=== PATIENT | female | born 1945 | race Caucasian/White ===

== ENCOUNTER 2017-02-18 14:40 | Inpatient (IN) | payer OTHER ==
[~2017-02-18] VITALS: Ht 154.9 cm; Wt 97.3 kg
[~2017-02-18 14:40] MED LIST: ACIDOPHILUS LA1 EAC1 PO; ASPIR 8181 M1 PO; Cardizem CD,Cartia X PO; Cordarone, Pacerone PO; Coumadin,Jantoven PO; Keflex PO; Lanoxin,Digitek PO; Lasix PO; Nitrostat,NitroQuick SL; Zestril,Prinivil PO
[2017-02-18 15:40] LABS: HEMATOCRIT 39.9 % (36.0-46.0); MCH 27.6 PG (29.0-34.0); MCHC 30.1 G/DL (30.0-36.0); MCV 91.9 FL (83-99); MEAN PLAT.VOLUME 11.3 uM^3 (9.5-12.4); NRBC (%) 0.4 /100 WBC (0-0); PLATELET COUNT 178 K/uL (156-360); RBC DIS.WIDTH-CV 17.1 % (11.8-14.6); RBC DIS.WIDTH-SD 57.2 % (39-53); RED BLOOD COUNT 4.34 M/uL (3.80-5.20); WHITE BLOOD COUNT 11.2 K/uL (4.1-10.2)
[2017-02-18 15:42] LABS: INTER. NORMALIZED RATIO 2.2; PROTHROMBIN TIME 24.7 SEC (10.2-12.9)
[2017-02-18 15:45] LABS: CHLORIDE 100 mEq/L (99-109); POTASSIUM 3.4 mEq/L (3.7-5.4); SODIUM 136 mEq/L (136-147)
[2017-02-18 15:47] LABS: GLUCOSE 125 mg/dL (70-99)
[2017-02-18 15:49] LABS: ANION GAP 16 MEQ/L (2-14)
[2017-02-18 15:51] LABS: GFR ESTIMATE (CALCULATED) 34 mL/min/
[2017-02-18 15:52] LABS: UREA NITROGEN (BUN) 28 mg/dL (9-23)
[2017-02-18 16:00] LABS: TROP-I INTERPRETATION NEGATIVE; TROPONIN-I < 0.01 ng/mL (0.0-0.30)
[2017-02-18] MEDS ORDERED: COUMADIN2 MG PO (17:23)
[2017-02-18] MEDS ORDERED: LASIX40 MG PO (17:26)
[2017-02-18] MEDS ORDERED: ZESTRIL10 MG PO (17:27)
[2017-02-18] MEDS ORDERED: LOPRESSOR100 M1 PO (17:28)
[2017-02-18] MEDS ORDERED: TYLENOL EXTRA500 MG PO (17:31)
[2017-02-18 18:21] LABS: PTT 33.8 SEC (25-37)
[2017-02-18 19:10] LABS: TOTAL BILIRUBIN 1.6 mg/dL (0.0-1.0)
[2017-02-18 19:11] LABS: ALKALINE PHOSPHATASE 94 IU/L (3-129)
[2017-02-18 19:45] VITALS: BP 122/87
[2017-02-18 21:40] VITALS: BP 122/87
[2017-02-18 22:55] VITALS: BP 105/75
[2017-02-19] VITALS (12 sets, daily range): BP systolic 96–118; BP diastolic 63–78
[2017-02-19 03:56] LABS: MCHC 30.6 G/DL (30.0-36.0); MCV 91.6 FL (83-99); MEAN PLAT.VOLUME 11.5 uM^3 (9.5-12.4); NRBC (%) 0.5 /100 WBC (0-0); PLATELET COUNT 162 K/uL (156-360); RBC DIS.WIDTH-CV 17.1 % (11.8-14.6); RED BLOOD COUNT 3.82 M/uL (3.80-5.20); WHITE BLOOD COUNT 10.8 K/uL (4.1-10.2)
[2017-02-19 04:09] LABS: CHLORIDE 101 mEq/L (99-109)
[2017-02-19 04:10] LABS: POTASSIUM 3.2 mEq/L (3.7-5.4); SODIUM 133 mEq/L (136-147)
[2017-02-19 04:11] LABS: GLUCOSE 135 mg/dL (70-99)
[2017-02-19 04:13] LABS: ANION GAP 14 MEQ/L (2-14)
[2017-02-19 04:15] LABS: GFR ESTIMATE (CALCULATED) 43 mL/min/
[2017-02-19 04:16] LABS: UREA NITROGEN (BUN) 22 mg/dL (9-23)
[2017-02-19 07:08] LABS: ALKALINE PHOSPHATASE 84 IU/L (3-129)
[2017-02-19 07:09] LABS: TOTAL BILIRUBIN 1.1 mg/dL (0.0-1.0)
[2017-02-19 07:18] LABS: DIGOXIN 1.4 ng/mL (0.8-2.0)
[2017-02-19 20:01] LABS: INTER. NORMALIZED RATIO 2.1; PROTHROMBIN TIME 23.2 SEC (10.2-12.9)
[2017-02-19 20:12] LABS: PTT 42.5 SEC (25-37)
[2017-02-20] VITALS (15 sets, daily range): BP systolic 102–137; BP diastolic 67–92
[2017-02-20 05:09] LABS: EOSINOPHIL (%) 0.6 % (0-5); EOSINOPHIL COUNT 0.1 K/uL (0-0.3); HEMATOCRIT 34.2 % (36.0-46.0); IMMATURE GRANULOCYTE (%) 0.6 % (0.0-0.7); IMMATURE GRANULOCYTE COUNT 0.1 K/uL; INSTRUMENT ABS NEUTROPHIL CT 8.6 K/uL; LYMPHOCYTE COUNT 1.4 K/uL (1.0-2.8); MCH 27.9 PG (29.0-34.0); MCHC 29.8 G/DL (30.0-36.0); MCV 93.4 FL (83-99); MEAN PLAT.VOLUME 10.5 uM^3 (9.5-12.4); MONOCYTE (%) 10.5 % (3-12); MONOCYTE COUNT 1.2 K/uL (0-0.8); NEUTROPHIL (%) 75.6 % (45-76); NEUTROPHIL COUNT 8.6 K/uL (1.8-6.4); PLATELET COUNT 162 K/uL (156-360); RBC DIS.WIDTH-CV 16.9 % (11.8-14.6); RBC DIS.WIDTH-SD 57.4 % (39-53); RED BLOOD COUNT 3.66 M/uL (3.80-5.20); WHITE BLOOD COUNT 11.4 K/uL (4.1-10.2)
[2017-02-20 05:25] LABS: ALKALINE PHOSPHATASE 70 IU/L (3-129); ANION GAP 12 MEQ/L (2-14); CHLORIDE 101 MEQ/L (99-109); GFR ESTIMATE (CALCULATED) 47 mL/min/; GLUCOSE 117 mg/dL (70-99); SAMPLE HEMOLYSIS CHECK 0; SAMPLE ICTERIC CHECK 0; SAMPLE LIPEMIA CHECK 0; SODIUM 134 MEQ/L (136-147); TOTAL BILIRUBIN 1.4 MG/DL (0.0-1.0); UREA NITROGEN (BUN) 16 mg/dL (9-23)
[2017-02-20 05:28] LABS: POTASSIUM 3.9 MEQ/L (3.7-5.4)
[2017-02-20 14:08] LABS: ADD MIUA? YES; BILIRUBIN NEGATIVE; BLOOD SMALL; COLOR AMBER ((YELLOW)); GLUCOSE (STRIP) NEGATIVE; KETONES NEGATIVE; LEUKOCYTES SMALL; NITRITE NEGATIVE; PROTEIN (STRIP) 30; SPECIFIC GRAVITY 1.026 (1.000-1.030); UROBILINOGEN 0.2 MG/DL (0.2-1.0)
[2017-02-20 14:31] LABS: EPITHELIAL CELLS 1+ /HPF
[2017-02-20 14:32] LABS: BACTERIA RARE /HPF; CASTS NONE SEEN /LPF; CRYSTALS NONE SEEN; MUCUS NONE SEEN /LPF; RED BLOOD CELLS 0-5 /HPF (0-5); UCUL ADDED? NO; WHITE BLOOD CELLS 0-5 /HPF (0-5)
[2017-02-21 00:27] VITALS: BP 104/71
[2017-02-21 05:01] VITALS: BP 107/73
[2017-02-21 08:00] VITALS: BP 127/77
[2017-02-21 09:02] LABS: EOSINOPHIL (%) 0.3 % (0-5); HEMATOCRIT 35.8 % (36.0-46.0); IMMATURE GRANULOCYTE (%) 0.9 % (0.0-0.7); IMMATURE GRANULOCYTE COUNT 0.1 K/uL; INSTRUMENT ABS NEUTROPHIL CT 8.8 K/uL; LYMPHOCYTE COUNT 0.9 K/uL (1.0-2.8); MCH 27.1 PG (29.0-34.0); MCHC 29.6 G/DL (30.0-36.0); MCV 91.6 FL (83-99); MEAN PLAT.VOLUME 10.2 uM^3 (9.5-12.4); MONOCYTE (%) 10.1 % (3-12); MONOCYTE COUNT 1.1 K/uL (0-0.8); NEUTROPHIL (%) 80.5 % (45-76); NEUTROPHIL COUNT 8.8 K/uL (1.8-6.4); PLATELET COUNT 188 K/uL (156-360); RBC DIS.WIDTH-CV 17.1 % (11.8-14.6); RBC DIS.WIDTH-SD 57.3 % (39-53); RED BLOOD COUNT 3.91 M/uL (3.80-5.20)
[2017-02-21 09:24] LABS: ALKALINE PHOSPHATASE 65 IU/L (3-129); ANION GAP 12 MEQ/L (2-14); CHLORIDE 101 MEQ/L (99-109); GFR ESTIMATE (CALCULATED) > 59 mL/min/; GLUCOSE 119 mg/dL (70-99); POTASSIUM 3.8 MEQ/L (3.7-5.4); SAMPLE HEMOLYSIS CHECK 0; SAMPLE ICTERIC CHECK 0; SAMPLE LIPEMIA CHECK 0; SODIUM 134 MEQ/L (136-147); TOTAL BILIRUBIN 1.6 MG/DL (0.0-1.0); UREA NITROGEN (BUN) 13 mg/dL (9-23)
[2017-02-21 11:34] VITALS: BP 122/73
[2017-02-21 15:32] VITALS: BP 117/64
[2017-02-21 19:18] VITALS: BP 111/63
[2017-02-22] VITALS (11 sets, daily range): BP systolic 103–127; BP diastolic 52–83
[2017-02-22 06:54] LABS: EOSINOPHIL (%) 0.6 % (0-5); EOSINOPHIL COUNT 0.1 K/uL (0-0.3); IMMATURE GRANULOCYTE COUNT 0.1 K/uL; INSTRUMENT ABS NEUTROPHIL CT 7.9 K/uL; LYMPHOCYTE COUNT 0.8 K/uL (1.0-2.8); MCH 28.4 PG (29.0-34.0); MCV 91.7 FL (83-99); MEAN PLAT.VOLUME 10.4 uM^3 (9.5-12.4); MONOCYTE (%) 9.6 % (3-12); MONOCYTE COUNT 0.9 K/uL (0-0.8); NEUTROPHIL (%) 80.6 % (45-76); NEUTROPHIL COUNT 7.9 K/uL (1.8-6.4); PLATELET COUNT 173 K/uL (156-360); RBC DIS.WIDTH-CV 16.9 % (11.8-14.6); RBC DIS.WIDTH-SD 56.8 % (39-53); RED BLOOD COUNT 3.38 M/uL (3.80-5.20); WHITE BLOOD COUNT 9.8 K/uL (4.1-10.2)
[2017-02-22 07:21] LABS: ALKALINE PHOSPHATASE 60 IU/L (3-129); ANION GAP 10 MEQ/L (2-14); CHLORIDE 97 MEQ/L (99-109); GFR ESTIMATE (CALCULATED) > 59 mL/min/; GLUCOSE 394 mg/dL (70-99); POTASSIUM 3.2 MEQ/L (3.7-5.4); SAMPLE HEMOLYSIS CHECK 0; SAMPLE ICTERIC CHECK 0; SAMPLE LIPEMIA CHECK 0; SODIUM 126 MEQ/L (136-147); TOTAL BILIRUBIN 1.5 MG/DL (0.0-1.0); UREA NITROGEN (BUN) 10 mg/dL (9-23)
[2017-02-23] VITALS (11 sets, daily range): BP systolic 98–132; BP diastolic 64–96
[2017-02-23 07:14] LABS: EOSINOPHIL (%) 0.3 % (0-5); HEMATOCRIT 32.4 % (36.0-46.0); IMMATURE GRANULOCYTE (%) 1.1 % (0.0-0.7); IMMATURE GRANULOCYTE COUNT 0.1 K/uL; INSTRUMENT ABS NEUTROPHIL CT 9.6 K/uL; LYMPHOCYTE COUNT 0.9 K/uL (1.0-2.8); MCH 27.5 PG (29.0-34.0); MCHC 30.2 G/DL (30.0-36.0); MEAN PLAT.VOLUME 9.6 uM^3 (9.5-12.4); MONOCYTE (%) 11.7 % (3-12); MONOCYTE COUNT 1.4 K/uL (0-0.8); NEUTROPHIL (%) 79.5 % (45-76); NEUTROPHIL COUNT 9.6 K/uL (1.8-6.4); PLATELET COUNT 208 K/uL (156-360); RBC DIS.WIDTH-CV 16.6 % (11.8-14.6); RBC DIS.WIDTH-SD 55.2 % (39-53); RED BLOOD COUNT 3.56 M/uL (3.80-5.20); WHITE BLOOD COUNT 12.1 K/uL (4.1-10.2)
[2017-02-23 07:47] LABS: ALKALINE PHOSPHATASE 71 IU/L (3-129); ANION GAP 8 MEQ/L (2-14); CHLORIDE 102 MEQ/L (99-109); GFR ESTIMATE (CALCULATED) 58 mL/min/; POTASSIUM 3.8 MEQ/L (3.7-5.4); SAMPLE HEMOLYSIS CHECK 0; SAMPLE ICTERIC CHECK 0; SAMPLE LIPEMIA CHECK 0; SODIUM 132 MEQ/L (136-147); TOTAL BILIRUBIN 1.2 MG/DL (0.0-1.0); UREA NITROGEN (BUN) 14 mg/dL (9-23)
[2017-02-23 07:48] LABS: GLUCOSE 152 mg/dL (70-99)
[2017-02-23 20:51] LABS: POINT-OF-CARE METER ID UU13113781
[2017-02-24] VITALS (11 sets, daily range): BP systolic 102–129; BP diastolic 58–78
[2017-02-24 07:24] LABS: Estimated Average Glucose 140 mg/dL (70-123); HEMOGLOBIN A1c (GLYCOHEMOGLOB) 6.5 % HGB (Below 5.7)
[2017-02-24 11:22] LABS: POINT-OF-CARE METER ID UU13113781
[2017-02-24 16:19] LABS: POINT-OF-CARE METER ID UU13113698
[2017-02-24 21:05] LABS: POINT-OF-CARE METER ID UU13113781
[2017-02-25] VITALS (7 sets, daily range): BP systolic 109–144; BP diastolic 57–94
[2017-02-25 09:04] LABS: POINT-OF-CARE METER ID UU13113803; POINT-OF-CARE USER ID NUTSLF44
[2017-02-25 13:20] LABS: POINT-OF-CARE METER ID UU13113803
[2017-02-25 18:05] LABS: POINT-OF-CARE METER ID UU13113803; POINT-OF-CARE USER ID NUTSLF44
[2017-02-25 21:01] LABS: POINT-OF-CARE METER ID UU13113781
[2017-02-26] VITALS (7 sets, daily range): BP systolic 93–141; BP diastolic 66–87
[2017-02-26 06:34] LABS: HEMATOCRIT 36.5 % (36.0-46.0); MCH 27.1 PG (29.0-34.0); MCHC 30.1 G/DL (30.0-36.0); MCV 89.9 FL (83-99); MEAN PLAT.VOLUME 9.8 uM^3 (9.5-12.4); RBC DIS.WIDTH-CV 16.4 % (11.8-14.6); RBC DIS.WIDTH-SD 54.8 % (39-53); RED BLOOD COUNT 4.06 M/uL (3.80-5.20); WHITE BLOOD COUNT 12.2 K/uL (4.1-10.2)
[2017-02-26 06:38] LABS: PLATELET COUNT 298 K/uL (156-360)
[2017-02-26 08:12] LABS: DIGOXIN 2.2 ng/mL (0.8-2.0)
[2017-02-26 08:19] LABS: ANION GAP 11 MEQ/L (2-14); CHLORIDE 103 MEQ/L (99-109); GFR ESTIMATE (CALCULATED) > 59 mL/min/; GLUCOSE 80 mg/dL (70-99); POTASSIUM 4.1 MEQ/L (3.7-5.4); SAMPLE HEMOLYSIS CHECK 0; SAMPLE ICTERIC CHECK 0; SAMPLE LIPEMIA CHECK 0; SODIUM 135 MEQ/L (136-147); UREA NITROGEN (BUN) 17 mg/dL (9-23)
[2017-02-26 08:33] LABS: POINT-OF-CARE METER ID UU13113698
[2017-02-26 21:15] LABS: POINT-OF-CARE METER ID UU13113781
[2017-02-27 04:28] VITALS: BP 121/86
[2017-02-27 05:09] LABS: CHLORIDE 107 mEq/L (99-109); POTASSIUM 4.2 mEq/L (3.7-5.4); SODIUM 137 mEq/L (136-147)
[2017-02-27 05:12] LABS: ANION GAP 9 MEQ/L (2-14)
[2017-02-27 05:14] LABS: GFR ESTIMATE (CALCULATED) 52 mL/min/
[2017-02-27 05:15] LABS: GLUCOSE 122 mg/dL (70-99); UREA NITROGEN (BUN) 21 mg/dL (9-23)
[2017-02-27 05:24] LABS: DIGOXIN 1.8 ng/mL (0.8-2.0)
[2017-02-27 07:43] LABS: POINT-OF-CARE METER ID UU13113803
[2017-02-27 08:00] VITALS: BP 126/81
[2017-02-27 11:28] VITALS: BP 127/80
[2017-02-27 11:33] LABS: POINT-OF-CARE METER ID UU13113803
[2017-02-27 15:04] VITALS: BP 132/90
[2017-02-27 16:39] LABS: POINT-OF-CARE METER ID UU13113803
[2017-02-27 19:13] VITALS: BP 119/76
[2017-02-27 23:15] VITALS: BP 114/70
[2017-02-28 04:33] VITALS: BP 117/73
[2017-02-28 07:26] VITALS: BP 115/76
[2017-02-28 08:07] LABS: DIGOXIN 1.7 ng/mL (0.8-2.0)
[2017-02-28 08:09] LABS: ANION GAP 11 MEQ/L (2-14); CHLORIDE 106 MEQ/L (99-109); GFR ESTIMATE (CALCULATED) > 59 mL/min/; GLUCOSE 105 mg/dL (70-99); POTASSIUM 4.6 MEQ/L (3.7-5.4); SAMPLE HEMOLYSIS CHECK 0; SAMPLE ICTERIC CHECK 0; SAMPLE LIPEMIA CHECK 0; SODIUM 137 MEQ/L (136-147); UREA NITROGEN (BUN) 25 mg/dL (9-23)
[2017-02-28 11:07] VITALS: BP 134/83
[2017-02-28 15:21] VITALS: BP 129/71
[2017-02-28 19:30] VITALS: BP 112/72
[2017-02-28 20:47] LABS: POINT-OF-CARE USER ID ENVMNS
[2017-02-28 23:22] VITALS: BP 99/57
[2017-03-01 02:37] VITALS: BP 127/71
[2017-03-01 05:26] VITALS: BP 127/56
[2017-03-01 07:16] VITALS: BP 95/71
[2017-03-01 12:29] VITALS: BP 117/82
[2017-03-01 20:14] VITALS: BP 109/61
== END 2017-03-01 21:10 | disposition hospice, home (50) | DRG 175 ==
LOC: EME 14:40 → 4EAST 17:59 → EDOF 17:59 → ENRESERV 18:06 → 4EAST 19:36
PROVIDERS: Emergency Medicine; Hospitalist; Physician Assistant Medical
DX: I26.99 Other pulmonary embolism without acute cor pulmonale (principal); J18.9 Pneumonia, unspecified organism; N17.9 Acute kidney failure, unspecified; I25.5 Ischemic cardiomyopathy; I48.2 Chronic atrial fibrillation; C55 Malignant neoplasm of uterus, part unspecified; C78.01 Secondary malignant neoplasm of right lung; C78.6 Secondary malignant neoplasm of retroperitoneum and peritoneum; D68.59 Other primary thrombophilia; E87.1 Hypo-osmolality and hyponatremia; I50.22 Chronic systolic (congestive) heart failure; E88.09 Other disorders of plasma-protein metabolism, not elsewhere classified; I82.621 Acute embolism and thrombosis of deep veins of right upper extremity; I82.C11 Acute embolism and thrombosis of right internal jugular vein; I83.893 Varicose veins of bilateral lower extremities with other complications; N18.3 Chronic kidney disease, stage 3 (moderate); E66.9 Obesity, unspecified; Z68.41 Body mass index [BMI] 40.0-44.9, adult; E87.6 Hypokalemia; R73.9 Hyperglycemia, unspecified; Z66 Do not resuscitate; Z51.5 Encounter for palliative care; R62.7 Adult failure to thrive; F41.9 Anxiety disorder, unspecified; F32.9 Major depressive disorder, single episode, unspecified; D64.9 Anemia, unspecified; Z79.01 Long term (current) use of anticoagulants; Z91.14 Patient's other noncompliance with medication regimen; Z80.3 Family history of malignant neoplasm of breast; Z82.49 Family history of ischemic heart disease and other diseases of the circulatory system; Z83.3 Family history of diabetes mellitus
CPT/HCPCS: 71010; 71275; 74176; 80048; 80053; 80076; 80162; 81003; 82948; 83036; 83605; 83735; 83880; 84443; 84484; 85025; 85027; 85610; 85730; 87040; 93005; 93306; 93970; 93971; 94010; 94640; 94640 76; 97530 GO; 97530 GP; 99202; 99281; 99285; C1753; J0456; J0696; J1160; J1650; J1815; J2270; J7050; Q0167